=== PATIENT | female | born 1945 | race Caucasian/White ===

== ENCOUNTER → 2017-11-14 08:48 | Outpatient (CLI) | payer MEDICARE, MEDICAID, SELFPAY ==
[2017-11-14 09:34] LABS: Hemoglobin A1C% w Est Avg Glu 5.8 % (4.0-6.0)
[2017-11-14 09:51] LABS: Alanine Aminotransferase 56 IU/L (9-52); Albumin 4.2 g/dL (3.5-5.0); Albumin Globulin Ratio 1.5 (1.0-2.8); Alkaline Phosphatase 58 U/L (38-126); Aspartate Aminotransferase 52 IU/L (14-36); BUN Creatinine Ratio 18.6 (6-22); Blood Urea Nitrogen 13 mg/dL (7-17); Calcium 9.3 mg/dL (8.4-10.2); Carbon Dioxide 29 mmol/L (22-32); Chloride 105 mmol/L (98-107); Cholesterol 199 mg/dL (140-199); Estimated Glomerular Filt Rate > 60.0 mL/min (>60); Globulin 2.8 g/dL (1.7-4.1); Glucose 133 mg/dL (80-110); HDL Cholesterol 89 mg/dL (40-60); HEMOLYSIS < 15 (0-50); LDL Cholesterol Calculated 94 mg/dL (<100); Potassium 3.8 mmol/L (3.4-5.1); Sodium 142 mmol/L (137-145); Triglycerides 81 mg/dL (35-150)
[2017-11-14 10:18] LABS: Creatinine Urine Random 81.2 mg/dL; Protein (Total) Urine Random 9 mg/dL (0-12); Protein Creatinine Ratio Urine 0.11 GRAM/24H
[2017-11-14 10:51] LABS: Thyroid Stimulating Hormone 1.56 uIU/mL (0.47-4.68)
== END ==
PROVIDERS: PCP Physician Assistant; Visit Provider Physician Assistant
DX: E11.65 Type 2 diabetes mellitus with hyperglycemia (principal)
CPT/HCPCS: 36415; 80053; 80061; 82570; 83036; 84156; 84443

== ENCOUNTER → 2017-12-31 07:34 | Outpatient (CLI) | payer MEDICARE, MEDICAID, SELFPAY ==
--- NOTE | 2017-12-31 | DI.US.S_ITS ---
PROCEDURE: US CAROTID DOPPLER BI INDICATIONS: ATHEROSCLEROSIS TECHNIQUE: Color and pulse Doppler interrogation was performed of both carotid systems, with image documentation and velocity measurements. COMPARISON: None. FINDINGS: Stenosis calculations are based on SRU (Society of Radiologists in Ultrasound) criteria. Right side: Brachial blood pressure: 136/67 mm Hg. Common carotid artery peak systolic velocity: 91 cm/sec. Internal carotid artery peak systolic velocity: 254 cm/sec. Internal carotid artery end diastolic velocity: 65 cm/sec. External carotid artery peak systolic velocity: 107 cm/sec. ICA/CCA peak systolic ratio: 2.8 Petersen scale imaging description: Moderate scattered plaque. Percent internal carotid artery stenosis: 70% stenosis to near occlusion. Vertebral artery: Flow direction is antegrade. Left side: Brachial blood pressure: 147/72 mm Hg. Common carotid artery peak systolic velocity: 114 cm/sec. Internal carotid artery peak systolic velocity: 265 cm/sec. Internal carotid artery end diastolic velocity: 72 External carotid artery peak systolic velocity: 139 cm/sec. ICA/CCA peak systolic ratio: 2.3. Petersen scale imaging description: Severe scattered plaque. Percent internal carotid artery stenosis: 70% stenosis to near occlusion. Vertebral artery: Flow direction is antegrade. IMPRESSION: 70% stenosis to near occlusion of the internal carotid arteries bilaterally. Dictated by: Philippe Merida [facility] Interpreted: Francois Gill MD on 12/31/2017 at 9:22 Approved by: Francois Gill M.D. on 12/31/2017 at 10:44
== END ==
PROVIDERS: Family Provider Physician Assistant; PCP Physician Assistant; Visit Provider Physician Assistant
DX: I65.23 Occlusion and stenosis of bilateral carotid arteries (principal)
CPT/HCPCS: 93880

== ENCOUNTER 2018-05-26 00:44 | Emergency (ER) | payer MEDICARE, MEDICAID, SELFPAY ==
--- NOTE | 2018-05-26 01:03 | ED.GENADULT ---
HPI - General Adult General Chief complaint: Dizziness Stated complaint: rossy wilson had carotid surgery 1 mo ago Time Seen by Provider: 05/26/18 01:01 Source: patient Mode of arrival: ambulatory Limitations: no limitations History of Present Illness HPI narrative: 72-year-old female had a right-sided carotid endarterectomy performed approximately 1 month ago. She states that her symptoms went well. She stated that she was told that if she ever got lightheaded she need to immediately come to the emergency department for evaluation. Patient states she was at her normal state health until a couple hours prior to arrival here in the emergency department when she states she was lying in bed and she became dizzy. She states it was not a room spinning dizzy distal lightheaded. She does state that it gets worse when she turns her head to the right. No other associated symptoms. She stated that she walked to the bathroom and felt uneasy. Was not having any chest pain or shortness of breath or palpitations. Did not fall. Is only on aspirin no other anticoagulation. Related Data Previous Rx's Medication Instructions Recorded azithromycin [Zithromax] 250 mg PO QDAY 5 Days #0 tab 06/27/17 Allergies Allergy/AdvReac Type Severity Reaction Status Date / Time cephalexin [CEPHALEXIN] Allergy Unknown Unverified 08/27/17 13:09 codeine [CODEINE] Allergy Unknown Unverified 08/27/17 13:09 latex [LATEX] Allergy Unknown Unverified 08/27/17 13:09 Review of Systems Constitutional Denies fever(s) and Denies headache(s) Eyes Denies blurry vision, Denies change in vision and Denies diplopia ENT Ears, Nose, Mouth, and Throat: Denies vertigo, Reports dizziness, Denies headache(s), Denies tinnitus and Denies sore throat Cardiovascular Denies chest pain, Denies palpitations and Denies dyspnea Respiratory Denies dyspnea Gastrointestinal Gastrointestinal: Denies abdominal pain, Denies melena, Denies nausea and Denies vomiting Genitourinary Denies dysuria and Denies vaginal discharge Musculoskeletal Denies myalgias and Denies arthralgias Integumentary/Breasts Denies lesions and Denies rash Neurologic Denies vertigo, Reports dizziness and Denies headache(s) Endocrine Denies palpitations Hematologic/Lymphatic Denies easy bleeding and Denies easy bruising [facility] Medical History Diabetes (Acute) Surgical History H/O carotid endarterectomy (Acute) Social History Smoking Status: Former smoker Exam Initial Vital Signs Initial Vital Signs: Vital Signs Temperature 97.9 F 05/26/18 01:06 Pulse Rate 76 05/26/18 01:06 Respiratory Rate 18 05/26/18 01:06 Blood Pressure 195/64 H 05/26/18 01:06 Pulse Oximetry 100 05/26/18 01:06 Const General: cooperative, healthy appearing, comfortable, well developed, well groomed and No acute distress Orientation: alert, awake and oriented x3 HENMT Head: normal to inspection and normocephalic Neck Other: Well-healed surgical scar right side of the neck without erythema Resp Effort & Inspection: normal respiratory effort Auscultation: clear to auscultation bilaterally Cardio Rate: regular rate Rhythm: regular rhythm Pulses: radial pulses present GI Inspection: non-distended Palpation: soft and No tender Skin Lesions: no lesions Rashes: no rashes Other: Well-healed surgical scar right-sided neck Neuro General: alert, awake and oriented x3 Cranial Nerves: CN's II-XI intact bilaterally Cognition: normal cognition Speech: speech normal Motor: muscle tone normal throughout Sensory Exam: no sensory deficits noted Extrem General: normal to inspection and capillary refill normal Psych Appearance: grossly normal and well kempt Scores NIH Stroke Scale Level of Conciousness: Alert, keenly responsive Ask month/age: Answers both questions correctly. Open/close eyes, close hand: Performs both tasks correctly Best gaze horizontal: Normal Visual salgado: No visual loss Facial palsy: Normal symetrical movement Left arm drift: No drift for full 10 sec Right arm drift: No drift for full 10 sec Left leg drift: No drift for full 10 sec Right leg drift: No drift for full 10 sec Limb ataxia: Absent Sensory on face/arms/legs: Normal, no sensory loss Best language: No aphasia, normal Dysarthria: Normal Extinction or inattention: No abnormality Total NIH Stroke scale score: 0 Course Orders Ordered: ED Orders 05/26/18 01:02 EKG-12 Lead Stat Vital Signs - 8 hr 05/26/18 01:06 05/26/18 02:02 05/26/18 02:58 Temperature 97.9 F Pulse Rate 76 63 64 Respiratory Rate 18 16 12 Blood Pressure 195/64 H Blood Pressure [Left Arm] 151/54 H 147/57 H Pulse Oximetry 100 100 95 Medical Decision Making ECG Data Attestation: I personally reviewed and interpreted this ECG as follows: Prior ECG tracings: not available for review Interpretation: Sinus rhythm Ventricular rate is 68 Normal QRS Normal QTC No ST T wave changes MDM Narrative Medical decision making narrative: Patient with a normal neurologic exam. Is not having vertigo. EKG is unremarkable. Discussed the case with her operative surgeon who states that she has never told any for patients to immediately come to the emergency department there ever dizzy. I do not have the ability to do CT angios due to degradation of our CT scan however I feel like she does not warrant an emergent CT angio. Hold on further workup for now. We have the patient call her operative surgeon tomorrow. She was given return precautions. She expressed understanding and agreement plan. Low suspicion for CVA/TIA secondary to symptoms. Discharge Plan Departure Patient Disposition: Home Clinical Impression: Lightheadedness Instructions: DI for Dizziness-Nonvertigo Activity Restrictions/Additional Instructions: Continue all of your medications as directed. Call your vascular surgeon tomorrow to discuss her symptoms. Return to the emergency department for any new or worsening symptoms Prescriptions: No Action azithromycin [Zithromax] 250 MG tablet 250 mg PO QDAY 5 Days Qty: 0 RF: 0
[2018-05-26 01:06] VITALS: BP 195/64; PULSE 76; RESP 18; TEMP 36.6; O2SAT 100; BMI 24.5
[2018-05-26 02:02] VITALS: BP 151/54; PULSE 63; RESP 16; O2SAT 100
[2018-05-26 02:58] VITALS: BP 147/57; PULSE 64; RESP 12; O2SAT 95
[2018-05-26 03:44] VITALS: BP 118/50; PULSE 67; RESP 17; O2SAT 95
== END 2018-05-26 03:46 | disposition home or self-care (01) ==
PROVIDERS: Emergency Provider Emergency Medicine; Family Provider Physician Assistant; PCP Physician Assistant
DX: R42 Dizziness and giddiness (principal)
CPT/HCPCS: 93005; 99283

== ENCOUNTER → 2018-10-09 12:54 | Outpatient (CLI) | payer MEDICARE, MEDICAID, SELFPAY ==
--- NOTE | 2018-10-09 | DI.MG.S_ITS ---
BILATERAL DIGITAL SCREENING MAMMOGRAM 3D/2D WITH CAD: 10/09/2018 CLINICAL: Routine screening. Comparison is made to exams dated: 07/28/2017 mammogram, 06/07/2014 mammogram, and 03/13/2009 mammogram - [facility]. There are scattered fibroglandular elements in both breasts. Current study was also evaluated with a Computer Aided Detection (CAD) system. There is a mole marker on the left breast. No significant masses, calcifications, or other findings are seen in either breast. There has been no significant interval change. IMPRESSION: NEGATIVE There is no mammographic evidence of malignancy. A 1 year screening mammogram is recommended. This exam was interpreted at Station ID: [id number]. NOTE: For mammograms, a report in lay terms will be sent to the patient. Approximately 15% of breast malignancies will not be visualized mammographically. In the management of a palpable breast mass, a negative mammogram must not discourage biopsy of a clinically suspicious lesion. Electronically Signed By: Dell zhu/jennifer:10/09/2018 18:35:05 letter sent: Normal Exam ACR BI-RADS Category 1: Negative [id number]
== END ==
PROVIDERS: PCP Physician Assistant; Visit Provider Physician Assistant
DX: Z12.31 Encounter for screening mammogram for malignant neoplasm of breast (principal)
CPT/HCPCS: 77063; 77067

== ENCOUNTER 2018-12-24 19:53 | Emergency (ER) | payer MEDICARE, MEDICAID, SELFPAY ==
[2018-12-24 20:25] VITALS: BP 178/61; PULSE 80; RESP 18; TEMP 37.2; O2SAT 97
--- NOTE | 2018-12-24 20:30 | DI.RAD.S_ITS ---
PROCEDURE: XR ANKLE RT MIN 3V INDICATIONS: pain after fall TECHNIQUE: 3 views of the ankle were acquired. COMPARISON: [facility], , ANKLE 3 VIEWS RIGHT, 11/08/2014, 20:21. FINDINGS: Bones: No fractures or dislocations. Ankle mortise is normally aligned. No suspicious bony lesions. Soft tissues: No tibiotalar joint effusion. Achilles tendon appears normal. IMPRESSION: Right ankle without acute radiographic abnormalities. If there is persistent clinical concern for occult fracture given adequate mechanism of injury, consider repeat imaging in 10-14 days. Dictated by: Jesse Ledesma M.D. on 12/24/2018 at 21:14 Approved by: Jesse Ledesma M.D. on 12/24/2018 at 21:15
[2018-12-24 22:30] VITALS: BP 182/55
--- NOTE | 2018-12-24 22:41 | ED_ITS ---
HPI - Extremity Injury (Lower) General Chief Complaint: Extremity Injury, Lower Stated Complaint: right foot/ankle pain Time Seen by Provider: 12/24/18 22:35 Source: patient Mode of arrival: wheelchair Limitations: no limitations History of Present Illness HPI Narrative: 73-year-old female here for evaluation of a right ankle injury. Patient states that she went to stand up and twisted her right ankle. Unsure th e exact mechanism of how she twisted however has had pain on the outside of her ankle since then. She has had this happen in the past. Has been able to ambulate however with some difficulty. Has not tried anything for the symptoms prior to arrival Related Data Previous Rx's Medication Instructions Recorded azithromycin [Zithromax] 250 mg PO QDAY 5 Days #0 tab 06/27/17 Allergies Allergy/AdvReac Type Severity Reaction Status Date / Time cephalexin [CEPHALEXIN] Allergy Unknown Unverified 08/27/17 13:09 codeine [CODEINE] Allergy Unknown Unverified 08/27/17 13:09 latex [LATEX] Allergy Unknown Unverified 08/27/17 13:09 adhesive tape Allergy Hives Verified 12/24/18 20:31 Review of Systems Constitutional Denies fever(s) Cardiovascular Denies chest pain and Denies dyspnea Respiratory Denies dyspnea Musculoskeletal Reports abnormal gait, Reports arthralgias (Right ankle pain) and Reports tingling (Right foot) Integumentary/Breasts Denies new lesions and Denies rash Neurologic Reports abnormal gait and Reports tingling (Right foot) Hematologic/Lymphatic Denies easy bleeding and Denies easy bruising [facility] Medical History Diabetes (Acute) Surgical History (Updated 05/26/18 @ 03:05 by Brandon Florez DO) H/O carotid endarterectomy (Acute) Social History Smoking Status: Former smoker Social History Smoking Status: Former smoker Exam Initial Vital Signs Initial Vital Signs: Vital Signs Temperature 99.0 F 12/24/18 20:25 Pulse Rate 80 12/24/18 20:25 Respiratory Rate 18 12/24/18 20:25 Blood Pressure 178/61 H 12/24/18 20:25 Pulse Oximetry 97 12/24/18 20:25 Const General: cooperative, comfortable, well developed and well groomed Orientation: alert, awake and oriented x3 HENMT Head: normal to inspection and normocephalic Resp Effort & Inspection: normal respiratory effort Cardio Pulses: dorsalis pedis present on the right Skin Lesions: no lesions Rashes: no rashes Neuro General: alert and awake Cognition: normal cognition Speech: speech normal Extrem General: normal to inspection and capillary refill normal Other: Tenderness to palpation along the lateral aspect of the right ankle just distal to the lateral malleolus. No tenderness to palpation the base of the 5th metatarsal. Some tenderness palpation over the tibiotalar joint. No medial side tenderness. No Achilles tenderness. No proximal fibula tenderness. Psych Appearance: grossly normal and well kempt Procedures Orthopedic Splinting/Casting Injury #1: Side: right Lower Extremity Injury Location: ankle Lower Extremity Immobilizer: Vitor wrap Other Orthopedic Equipment: walker Post splinting neuro exam: intact Post splinting vascular exam: intact Placed by: Nursing Course Orders Ordered: ED Orders 12/24/18 20:30 XR ankle RT min 3V Stat Vital Signs - 8 hr 12/24/18 20:25 12/24/18 22:30 12/24/18 22:54 Temperature 99.0 F Pulse Rate 80 75 Respiratory Rate 18 Blood Pressure 178/61 H 165/47 H Blood Pressure [Right Arm] 182/55 H Pulse Oximetry 97 MDM - Extremity Injury (Lower) Imaging Data Ankle x-ray: Radiologist's impression: [address] [id number] XRay Report Signed Patient: Franco Wooten WMR#: [id number] : 7Acct:[id number] Age/Sex: 73 / FDate of Service: 12/24/18 Loc: ED Accession Number: [id number] Procedure: XR ankle RT min 3V Ordering Provider: Brandon Florez D.O. PROCEDURE: XR ANKLE RT MIN 3V INDICATIONS: pain after fall TECHNIQUE: 3 views of the ankle were acquired. COMPARISON: [facility], , ANKLE 3 VIEWS RIGHT, 11/08/2014, 20:21. FINDINGS: Bones: No fractures or dislocations. Ankle mortise is normally aligned. No suspicious bony lesions. Soft tissues: No tibiotalar joint effusion. Achilles tendon appears normal. IMPRESSION: Right ankle without acute radiographic abnormalities. If there is persistent clinical concern for occult fracture given adequate mechanism of injury, consider repeat imaging in 10-14 days. Dictated by: Jesse Ledesma M.D. on 12/24/2018 at 21:14 Approved by: Jesse Ledesma M.D. on 12/24/2018 at 21:15 [facility] Narrative Medical decision making narrative: Neurovascular intact, no fractures on the x- ray, Vitor bandage placed for comfort. Patient has a walker at home that she will use if needed. Discussed the use of anti-inflammatories and ice and elevation. She is given return precautions and follow-up instructions. She expressed understanding and agreement with plan. Discharge Plan Departure Patient Disposition: Home Clinical Impression: Right ankle sprain Qualifiers: Encounter type: initial encounter Involved ligament of ankle: unspecified ligament Qualified Code(s): S93.401A - Sprain of unspecified ligament of right ankle, initial encounter Discharge Date/Time: 12/24/18 22:55 Interventions: ED Discharge Assessment Last Done: 12/24/18 22:54 Instructions: DI for Ankle Sprain, How To Perform RICE (Rest, Ice, Compress, Elevate), How to Apply an Elastic Wrap on Ankle Activity Restrictions/Additional Instructions: There is no fractures noted on the x-rays. You can walk on your ankle. Use your walker at home like we discussed. Contact your primary provider for a follow-up. Return to the emergency department for any new or worsening symptoms Prescriptions: No Action azithromycin [Zithromax] 250 MG tablet 250 mg PO QDAY 5 Days Qty: 0 RF: 0 Referrals: Rosa Roberts PA-C [Primary Care Provider] -
[2018-12-24 22:54] VITALS: BP 165/47; PULSE 75
== END 2018-12-24 22:55 | disposition home or self-care (01) ==
PROVIDERS: Emergency Provider Emergency Medicine; PCP Physician Assistant
DX: S93.401A Sprain of unspecified ligament of right ankle, initial encounter (principal); X50.1XXA Overexertion from prolonged static or awkward postures, initial encounter
CPT/HCPCS: 73610; 99282; 99283

== ENCOUNTER → 2019-02-26 09:09 | Outpatient (CLI) | payer MEDICARE, MEDICAID, SELFPAY ==
[2019-02-26 10:31] LABS: Alanine Aminotransferase 40 IU/L (9-52); Albumin 4.4 g/dL (3.5-5.0); Albumin Globulin Ratio 1.7 (1.0-2.8); Alkaline Phosphatase 67 U/L (38-126); Aspartate Aminotransferase 32 IU/L (14-36); Blood Urea Nitrogen 12 mg/dL (7-17); Calcium 9.3 mg/dL (8.4-10.2); Carbon Dioxide 28 mmol/L (22-32); Chloride 104 mmol/L (98-107); Cholesterol 148 mg/dL (140-199); Estimated Glomerular Filt Rate > 60.0 mL/min (>60); Globulin 2.6 g/dL (1.7-4.1); Glucose 135 mg/dL (80-110); HDL Cholesterol 77 mg/dL (40-60); HEMOLYSIS < 15 (0-50); LDL Cholesterol Calculated 54 mg/dL (<100); Potassium 4.1 mmol/L (3.4-5.1); Sodium 141 mmol/L (137-145); Triglycerides 84 mg/dL (35-150)
[2019-02-26 10:42] LABS: Hemoglobin A1C% w Est Avg Glu 5.7 % (4.0-6.0)
[2019-02-26 11:30] LABS: Thyroid Stimulating Hormone 1.34 uIU/mL (0.47-4.68)
[2019-02-26 16:30] LABS: Creatinine Urine Random 68.5 mg/dL
[2019-02-26 16:35] LABS: Microalbumi Creatinin Ratio Ur 8.7 ug/mg CR (<30); Microalbumin Urine Random < 0.6 mg/dL (0-1.6)
== END ==
PROVIDERS: PCP Physician Assistant; Visit Provider Physician Assistant
DX: F41.9 Anxiety disorder, unspecified (principal); E11.65 Type 2 diabetes mellitus with hyperglycemia
CPT/HCPCS: 36415; 80053; 80061; 82043; 82570; 83036; 84443

== ENCOUNTER 2019-11-13 18:19 | Emergency (ER) | payer MEDICARE, MEDICAID, SELFPAY ==
[2019-11-13 18:24] VITALS: BP 214/91; PULSE 94; RESP 20; TEMP 36.3; O2SAT 99; BMI 25.8
--- NOTE | 2019-11-13 18:37 | ED.LOWEXIN ---
HPI - Extremity Injury (Lower) General Chief Complaint: Extremity Injury, Lower Stated Complaint: left ankle swelling, diabetic Time Seen by Provider: 11/13/19 18:20 Source: patient Mode of arrival: Family Vehicle Limitations: no limitations History of Present Illness HPI Narrative: 74-year-old female nonsmoker with history of diabetes presents with a chief complaint of some swelling of her left ankle. She denies any significant pain nor history of the same. She denies any known injury but, she states that she uses an exercise bike multiple times per week and may have over done it. Additionally she states that she feels a bit fuzzy and not right, stating that her blood pressure was over 200 and she does not have a history of elevated blood pressure. She denies any blurred vision or trouble speech. She denies any chest pain or shortness of breath. She denies any focal neurologic findings. MD complaint: ankle injury Relieving factors: nothing Exacerbating factors: nothing Associated symptoms: swelling Other symptoms: other Related Data Previous Rx's Medication Instructions Recorded azithromycin [Zithromax] 250 mg PO QDAY 5 Days #0 tab 06/27/17 lisinopril 10 mg PO DAILY #30 tab 11/13/19 Allergies Allergy/AdvReac Type Severity Reaction Status Date / Time cephalexin [CEPHALEXIN] Allergy Unknown Unverified 08/27/17 13:09 codeine [CODEINE] Allergy Unknown Unverified 08/27/17 13:09 latex [LATEX] Allergy Unknown Unverified 08/27/17 13:09 adhesive tape Allergy Hives Verified 12/24/18 20:31 Review of Systems Constitutional Constitutional: Denies chills, Denies fatigue, Denies fever(s), Denies frequent falls, Denies lethargy and Denies weakness Comments: fuzzy, not right Eyes Eyes: Denies change in vision, Denies eye discharge, Denies irritation and Denies loss of vision ENT Ears, Nose, Mouth, and Throat: Denies change in voice, Denies dizziness, Denies neck pain, Denies sore throat and Denies throat swelling Cardiovascular Cardiovascular: Denies chest pain, Denies irregular heart rhythm, Denies lightheadedness, Denies palpitations, Denies dyspnea, Denies dyspnea on exertion and Denies orthopnea Respiratory Respiratory: Denies cough, Denies dyspnea, Denies dyspnea on exertion and Denies wheezing Gastrointestinal Gastrointestinal: Denies abdominal pain, Denies change in bowel habits, Denies diarrhea, Denies nausea and Denies vomiting Musculoskeletal Musculoskeletal: Reports joint swelling, Denies neck pain and Denies numbness Integumentary/Breasts Skin/Breast: Denies pruritus, Denies erythema, Denies rash and Denies wounds Neurologic Neurologic: Denies behavioral changes, Denies confusion, Denies dizziness, Denies frequent falls, Denies loss of vision, Denies numbness and Denies weakness Psychiatric Psychiatric: Denies anxiety, Denies behavioral changes, Denies confusion, Denies depression, Denies homicidal ideation and Denies suicidal ideation Endocrine Endocrine: Denies fatigue, Denies flushing and Denies palpitations Hematologic/Lymphatic Hematologic/Lymphatic: Denies easy bruising Allergic/Immunologic Allergic/Immunologic: Denies urticaria, Denies throat swelling and Denies wheezing Patient History Medical History (Updated 11/13/19 @ 21:10 by Eliseo Vigil DO) Diabetes (Acute) Surgical History (Updated 05/26/18 @ 03:05 by Brandon Florez DO) H/O carotid endarterectomy (Acute) Social History Smoking Status: Former smoker Smoking Status: Former smoker alcohol intake frequency: other Substance Use Type: does not use Exam Narrative Exam Narrative: GENERAL: [74] year old patient appears stated age. Well-nourished, well-developed patient, in mild distress. Anxious HEAD: Atraumatic. Normocephalic. EYES: Pupils equal round and reactive. Extraocular motions intact. No scleral icterus. No injection or drainage. ENT: Nose without bleeding, purulent drainage. Throat without erythema, tonsillar hypertrophy or exudate. Airway patent. NECK: Trachea midline. Non tender CARDIOVASCULAR: Regular rate and rhythm without murmurs, gallops, or rubs. RESPIRATORY: Clear to auscultation. Breath sounds equal bilaterally. No wheezes, rales, or rhonchi. GASTROINTESTINAL: Abdomen soft, non-tender, nondistended. EXTREMITIES: Mild left ankle swelling laterally. Mild tenderness in distribution of ATF BACK: Nontender without deformity or crepitance. No flank tenderness. NEURO: AOx3. SKIN: No rash or erythema of visible areas Initial Vital Signs Initial Vital Signs: Vital Signs Temperature 97.4 F L 11/13/19 18:24 Pulse Rate 94 H 11/13/19 18:24 Respiratory Rate 20 11/13/19 18:24 Blood Pressure 214/91 H 11/13/19 18:24 Pulse Oximetry 99 11/13/19 18:24 Course Course Course Narrative: Patient's complaint was of left ankle swelling, she did not initially know but it was tender until I pressed on it. She states that she was concerned because she is diabetic. There is no redness, warmth or sign of infection. Labs were drawn because she had elevated blood pressure and states she felt ?funny? period without intervention her blood pressure dropped into the 170s and her symptoms resolved. Orders Ordered: ED Orders 11/13/19 18:37 XR ankle LT min 3V Stat 11/13/19 19:18 Complete Blood Count AUTO DIFF Stat Comprehensive Metabolic Panel Stat NT-proBNP (BNP-Adult 18+) Stat Prothrombin Time INR Stat Troponin & CK Cardiac Panel Stat 11/13/19 19:21 EKG-12 Lead Stat Vital Signs Vital signs: Vital Signs - 8 hr 11/13/19 18:56 11/13/19 20:36 11/13/19 21:14 Pulse Rate 85 65 69 Respiratory Rate 19 12 12 Blood Pressure [Left Arm] 226/94 H 188/86 H 172/74 H Pulse Oximetry 97 95 96 MDM - Extremity Injury (Lower) Lab Data Result diagrams: 11/13/19 19:18 11/13/19 19:18 Labs: Lab Results 11/13/19 11/13/19 11/13/19 Range/Units 19:18 19:18 19:18 WBC 4.5 (4.5-11.0) X10^3/uL RBC 3.72 L (4.0-5.2) X10^6/uL Hgb 12.2 (12.0-16.0) g/dL Hct 35.6 L (36-46) % MCV 95.7 (80-100) fL MCH 32.9 (26-34) PG MCHC 34.4 (30-36) % RDW 13.0 (11.6-14.8) % Plt Count 115 L (150-400) X10^3/uL Neut % (Auto) 48.3 L (50-75) % Lymph % (Auto) 40.3 H (25-40) % Morrill % (Auto) 9.5 (3-14) % Eos % (Auto) 1.3 L (2-4) % Baso % (Auto) 0.6 (0-2) % Neut # (Auto) 2200 (0217-1086) /uL Lymph # (Auto) 1800 (5314-2027) /uL Morrill # (Auto) 400 (0-900) /uL Eos # (Auto) 100 (0-450) /uL Baso # (Auto) 0 (0-100) /uL PT 11.5 (10.1-12.7) SECONDS INR 1.0 (0.9-1.3) Sodium 137 (137-145) mmol/L Potassium 3.8 (3.4-5.1) mmol/L Chloride 102 (98-107) mmol/L Carbon Dioxide 28 (22-32) mmol/L BUN 12 (7-17) mg/dL Creatinine 0.58 (0.52-1.04) mg/dL Estimated GFR > 60.0 (>60) mL/min BUN/Creatinine Ratio 20.7 (6-22) Glucose 147 H (80-110) mg/dL Calcium 9.6 (8.4-10.2) mg/dL Total Bilirubin 1.8 H (0.2-1.3) mg/dL AST 29 (14-36) IU/L ALT 28 (<35) IU/L Alkaline Phosphatase 78 (38-126) U/L Total Creatine Kinase 43 (30-135) U/L CK-MB (CK-2) TNP CK-MB (CK-2) Rel Index TNP Troponin I < 0.012 (0.01-0.034) ng/mL NT-Pro-B Natriuret Pep 214 H (<125) pg/mL Total Protein 7.0 (6.3-8.2) g/dL Albumin 4.4 (3.5-5.0) g/dL Globulin 2.6 (1.7-4.1) g/dL Albumin/Globulin Ratio 1.7 (1.0-2.8) Imaging Data Extremity x-ray #1: Radiologist's Impression: Franco Wooten W 74 F [address] [address] XRay Report Signed Patient: Franco Wooten WMR#: [id number] : 7Acct:[id number] Age/Sex: 74 / FDate of Service: 11/13/19 Loc: ED Accession Number: [id number] Procedure: XR ankle LT min 3V Ordering Provider: Eliseo Vigil D.O. PROCEDURE: XR ANKLE LT MIN 3V INDICATIONS: pain, swelling, no obvious injury TECHNIQUE: 3 views of the ankle were acquired. COMPARISON: [facility], CR, XR ANKLE RT MIN 3V, 12/24/2018, 20:30. FINDINGS: Bones: No fractures or dislocations. Ankle mortise is normally aligned. No suspicious bony lesions. Soft tissues: No tibiotalar joint effusion. Achilles tendon appears normal. IMPRESSION: No acute radiographic findings. If pain persists, followup imaging in 5-7 days is recommended to exclude occult fracture. Dictated by: Ashley Kelly M.D. on 11/13/2019 at 19:18 Approved by: Ashley Kelly M.D. on 11/13/2019 at 19:25 MDM Narrative Medical decision making narrative: CHF considered but thought unlikely given unilateral symptoms. Fracture considered but thought unlikely given lack of findings on x-ray. DVT considered as well as infection but thought less likely given lack of redness or warmth. Given tenderness and distribution of anterior talofibular ligament it seems most likely that she has a slight sprain. Labs ordered given her elevated blood pressure and comments that she felt unwell, these labs are very reassuring and blood pressure normalized and symptoms resolved. She has been given return precautions and understands importance of close follow-up Discharge Plan Departure Patient Disposition: Home Clinical Impression: Ankle swelling Qualifiers: Laterality: left Qualified Code(s): M25.472 - Effusion, left ankle HTN (hypertension) Qualifiers: Hypertension type: essential hypertension Qualified Code(s): I10 - Essential (primary) hypertension Discharge Date/Time: 11/13/19 21:34 Instructions: Essential Hypertension Activity Restrictions/Additional Instructions: *You have been diagnosed with [ blood pressure ] *What to do: *Take medications as directed *Follow up with your primary care provider in 2-3 days, call for an appointment. Let them know you were seen in the Emergency Department and that we ask that you be seen in follow up *Return to ER if you should have any new, worsening or concerning symptoms, such as [ ] Prescriptions: New lisinopril 10 mg tablet 10 mg PO DAILY Qty: 30 RF: 0 No Action azithromycin [Zithromax] 250 MG tablet 250 mg PO QDAY 5 Days Qty: 0 RF: 0 Referrals: Rosa Roberts PA-C [Primary Care Provider] -
[2019-11-13 18:56] VITALS: BP 226/94; PULSE 85; RESP 19; O2SAT 97
[2019-11-13 19:33] LABS: Add Manual Diff / Slide Review NO; Basophils Absolute Auto 0 /uL (0-100); Basophils Percent Auto 0.6 % (0-2); Eosinophils Absolute Auto 100 /uL (0-450); Eosinophils Percent Auto 1.3 % (2-4); Hematocrit 35.6 % (36-46); Hemoglobin 12.2 g/dL (12.0-16.0); Lymphocytes Absolute Auto 1800 /uL (1100-4500); Lymphocytes Percent Auto 40.3 % (25-40); Mean Corpuscular HGB Conc 34.4 % (30-36); Mean Corpuscular Hemoglobin 32.9 PG (26-34); Mean Corpuscular Volume 95.7 fL (80-100); Monocytes Absolute Auto 400 /uL (0-900); Monocytes Percent Auto 9.5 % (3-14); Neutrophils Absolute Auto 2200 /uL (1500-7000); Neutrophils Percent Auto 48.3 % (50-75); Platelet Count 115 X10^3/uL (150-400); Red Blood Cell Count 3.72 X10^6/uL (4.0-5.2); White Blood Cell Count 4.5 X10^3/uL (4.5-11.0)
[2019-11-13 19:48] LABS: Prothrombin Time 11.5 SECONDS (10.1-12.7)
[2019-11-13 19:49] LABS: Alanine Aminotransferase 28 IU/L (<35); Albumin 4.4 g/dL (3.5-5.0); Albumin Globulin Ratio 1.7 (1.0-2.8); Alkaline Phosphatase 78 U/L (38-126); Aspartate Aminotransferase 29 IU/L (14-36); BUN Creatinine Ratio 20.7 (6-22); Bilirubin Total 1.8 mg/dL (0.2-1.3); Blood Urea Nitrogen 12 mg/dL (7-17); Calcium 9.6 mg/dL (8.4-10.2); Carbon Dioxide 28 mmol/L (22-32); Chloride 102 mmol/L (98-107); Creatine Kinase 43 U/L (30-135); Estimated Glomerular Filt Rate > 60.0 mL/min (>60); Globulin 2.6 g/dL (1.7-4.1); Glucose 147 mg/dL (80-110); HEMOLYSIS < 15 (0-50); Potassium 3.8 mmol/L (3.4-5.1); Sodium 137 mmol/L (137-145)
[2019-11-13 20:01] LABS: NT-proBNP (BNP-Adult 18+) 214 pg/mL (<125); Troponin I < 0.012 ng/mL (0.01-0.034)
[2019-11-13 20:36] VITALS: BP 188/86; PULSE 65; RESP 12; O2SAT 95
[2019-11-13 21:14] VITALS: BP 172/74; PULSE 69; RESP 12; O2SAT 96
== END 2019-11-13 21:34 | disposition home or self-care (01) ==
PROVIDERS: Emergency Provider Emergency Medicine; PCP Physician Assistant
DX: M25.472 Effusion, left ankle (principal); I10 Essential (primary) hypertension; R07.9 Chest pain, unspecified
CPT/HCPCS: 36415; 73610; 80053; 82550; 83880; 84484; 85025; 85610; 93005; 99284

== ENCOUNTER → 2021-03-24 12:47 | Outpatient (CLI) | payer MEDICARE, MEDICAID, SELFPAY ==
--- NOTE | 2021-03-24 | DI.MG.S_ITS ---
BILATERAL DIGITAL SCREENING MAMMOGRAM 3D/2D WITH CAD: 03/24/2021 CLINICAL: Routine screening. Comparison is made to exams dated: 10/09/2018 mammogram, 07/28/2017 mammogram, and 06/07/2014 mammogram - [facility]. There are scattered fibroglandular elements in both breasts. Current study was also evaluated with a Computer Aided Detection (CAD) system. No significant masses, calcifications, or other findings are seen in either breast. There has been no significant interval change. IMPRESSION: NEGATIVE There is no mammographic evidence of malignancy. A 1 year screening mammogram is recommended. This exam was interpreted at Station ID: [id number]. NOTE: For mammograms, a report in lay terms will be sent to the patient. Approximately 15% of breast malignancies will not be visualized mammographically. In the management of a palpable breast mass, a negative mammogram must not discourage biopsy of a clinically suspicious lesion. Electronically Signed By: Modesto vásquez/jennifer:03/26/2021 09:13:00 letter sent: Normal Exam ACR BI-RADS Category 1: Negative 3341F
== END ==
PROVIDERS: PCP Physician Assistant; Referring Provider Physician Assistant; Visit Provider Physician Assistant
DX: Z12.31 Encounter for screening mammogram for malignant neoplasm of breast (principal)
CPT/HCPCS: 77063; 77067

== ENCOUNTER 2022-03-31 13:32 | Emergency (ER) | payer MEDICARE, MEDICAID, SELFPAY ==
[2022-03-31 13:52] VITALS: BP 164/65; PULSE 86; RESP 16; TEMP 36.7; O2SAT 96; BMI 24.4
--- NOTE | 2022-03-31 13:55 | DI.RAD.S_ITS ---
PROCEDURE: XR CHEST 2V INDICATIONS: productive cough TECHNIQUE: 2 views of the chest were acquired. COMPARISON: [facility], CHEST 2 VIEW, 06/27/2017, 14:36. [facility], CHEST 2 VIEW, 04/17/2015, 13:42. FINDINGS: Surgical changes and devices: None. Lungs and pleura: Probable scarring atelectasis. Mild opacity at the right lung base. No dense consolidation. No pleural effusions. Mediastinum: Mediastinal contours are normal. Heart size is normal. Bones and chest wall: No suspicious bony abnormalities. Soft tissues appear unremarkable. IMPRESSION: Mild opacity at the right lung base could represent early airspace disease. There is likely superimposed atelectasis/scarring. Consider future imaging surveillance to assess for resolution. Dictated by: Moses Smith M.D. on 03/31/2022 at 15:11 Approved by: Moses Smith M.D. on 03/31/2022 at 15:13
[2022-03-31 14:48] LABS: Influenza A - CEPHEID Flu A NEGATIVE (NEGATIVE); Influenza B - CEPHEID Flu B NEGATIVE (NEGATIVE); Respiratory Syncytial Virus Negative (Negative)
[2022-03-31 14:50] LABS: COVID-19 CEPHEID 4-PLEX PCR Negative (Negative)
--- NOTE | 2022-03-31 15:12 | ED.URI ---
HPI - URI/Sore Throat <Monica Gonzalez PA-C - Last Filed: 03/31/22 18:12> General Chief Complaint: Upper Respiratory Symptoms Stated Complaint: cold for t-7 exhausted Time Seen by Provider: 03/31/22 14:40 Source: patient Mode of arrival: Ambulatory History of Present Illness HPI Narrative: patient is very pleasant 76 years old female, ex-smoker, quit 20 years ago, pt prior to quitting smoked for 20 years 1 PPD , Has been experiencing cold symptoms for about a week. Her nasal congestion cleared however persistent cough, productive with yellow-green sputum continued. Patient feels tired from coughing, admits her ribs are hurting, admits to poor sleep. She denies any fever chills, denies nasal drainage at this point. She denies shortness of breath or dyspnea on exertion. Due to her recent illness her appetite decreased. Admits she perhaps lost some weight. Related Data Previous Rx's Medication Instructions Recorded azithromycin 250 mg tablet 250 mg PO QDAY 5 days #0 tabs 06/27/17 (Zithromax) lisinopril 10 mg tablet 10 mg PO DAILY #30 tabs 11/13/19 azithromycin 250 mg tablet See Rx Instructions PO .COMPLEX #6 03/31/22 (Zithromax) tabs benzonatate 200 mg capsule 200 mg PO BID PRN cough #14 caps 03/31/22 guaifenesin 600 mg tablet, 600 mg PO Q12H PRN cough #20 tabs 03/31/22 extended release 12 hr Allergies Allergy/AdvReac Type Severity Reaction Status Date / Time cephalexin [CEPHALEXIN] Allergy Unknown Unverified 08/27/17 13:09 codeine [CODEINE] Allergy Unknown Unverified 08/27/17 13:09 latex [LATEX] Allergy Unknown Unverified 08/27/17 13:09 adhesive tape Allergy Hives Verified 12/24/18 20:31 Review of Systems <Monica Gonzalez PA-C - Last Filed: 03/31/22 18:12> Review of Systems Narrative: as per HPI Patient History <Monica Gonzalez PA-C - Last Filed: 03/31/22 18:12> Medical History Diabetes Surgical History H/O carotid endarterectomy Social History Smoking Status: Former smoker Smoking Status: Former smoker alcohol intake frequency: other Substance Use Type: does not use Exam <Monica Gonzalez PA-C - Last Filed: 03/31/22 18:12> Narrative Exam Narrative: GENERAL: 76 year old female appears stated age. Well-developed patient, in no acute distress. she however cough persistently. HEAD: Atraumatic. Normocephalic. EYES: Pupils equal round and reactive. Extraocular motions intact. No scleral icterus. No injection or drainage. ENT: Nasal passages are dry without bleeding, purulent drainage. Throat with patchy erythema, there is notonsillar hypertrophy or exudate. Airway patent. NECK: Trachea midline. Non tender CARDIOVASCULAR: Regular rate and rhythm without murmurs, gallops, or rubs. RESPIRATORY: scattered rhonchi at the right lower lobe not cleared with cough the rest of salgado are cClear to auscultation. . GASTROINTESTINAL: Abdomen soft, non-tender, nondistended. EXTREMITIES: No edema or joint tenderness. BACK: Nontender without deformity or crepitance. No flank tenderness. NEURO: AOx3. SKIN: No rash or erythema of visible areas Initial Vital Signs Initial Vital Signs: Vital Signs Temperature 98.0 F 03/31/22 13:52 Pulse Rate 86 03/31/22 13:52 Respiratory Rate 16 03/31/22 13:52 Blood Pressure 164/65 H 03/31/22 13:52 Pulse Oximetry 96 03/31/22 13:52 Oxygen Delivery Method 03/31/22 13:52 <Rachel Baumann MD - Last Filed: 03/31/22 18:49> Initial Vital Signs Initial Vital Signs: Vital Signs Temperature 98.0 F 03/31/22 13:52 Pulse Rate 86 03/31/22 13:52 Respiratory Rate 16 03/31/22 13:52 Blood Pressure 164/65 H 03/31/22 13:52 Pulse Oximetry 96 03/31/22 13:52 Oxygen Delivery Method 03/31/22 13:52 Course <Monica Gonzalez PA-C - Last Filed: 03/31/22 18:12> Orders Ordered: ED Orders 03/31/22 13:55 XR chest 2V Stat Covid-19 + FLU A/B + RSV - PCR Stat Vital Signs Vital signs: Vital Signs - 8 hr 03/31/22 13:52 03/31/22 15:57 03/31/22 15:58 Temperature 98.0 F Pulse Rate 86 85 83 Respiratory Rate 16 Blood Pressure 164/65 H Pulse Oximetry 96 95 95 Oxygen Delivery Method Room Air 03/31/22 15:58 03/31/22 16:00 03/31/22 16:00 Temperature Pulse Rate 80 Respiratory Rate Blood Pressure 174/72 H 172/73 H Pulse Oximetry 96 Oxygen Delivery Method 03/31/22 17:00 Temperature Pulse Rate 84 Respiratory Rate 17 Blood Pressure 170/68 H Pulse Oximetry 95 Oxygen Delivery Method Room Air <Rachel Baumann MD - Last Filed: 03/31/22 18:49> Orders Ordered: ED Orders 03/31/22 13:55 XR chest 2V Stat Covid-19 + FLU A/B + RSV - PCR Stat Vital Signs Vital signs: Vital Signs - 8 hr 03/31/22 13:52 03/31/22 15:57 03/31/22 15:58 Temperature 98.0 F Pulse Rate 86 85 83 Respiratory Rate 16 Blood Pressure 164/65 H Pulse Oximetry 96 95 95 Oxygen Delivery Method Room Air 03/31/22 15:58 03/31/22 16:00 03/31/22 16:00 Temperature Pulse Rate 80 Respiratory Rate Blood Pressure 174/72 H 172/73 H Pulse Oximetry 96 Oxygen Delivery Method 03/31/22 17:00 Temperature Pulse Rate 84 Respiratory Rate 17 Blood Pressure 170/68 H Pulse Oximetry 95 Oxygen Delivery Method Room Air MDM - URI/Sore Throat <Monica Gonzalez PA-C - Last Filed: 03/31/22 18:12> Lab Data Labs: Lab Results 03/31/22 Range/Units 13:55 SARS-CoV-2 (PCR) Negative (Negative) Influenza A (RT-PCR) Flu a negative (NEGATIVE) Influenza B (RT-PCR) Flu b negative (NEGATIVE) RSV (PCR) Negative (Negative) Imaging Data Chest x-ray: Radiologist's Impression: Bones and chest wall:? No suspicious bony abnormalities.? Soft tissues appear unremarkable.? ? IMPRESSION:? Mild opacity at the right lung base could represent early airspace disease.? There is likely superimposed atelectasis/scarring.? Consider future imaging surveillance to assess for resolution. MDM Narrative Medical decision making narrative: patient exam, imaging consistent was acute bronchitis. discussed with patient diagnosis and treatment. She will start on a Zithromax antibiotic, and antitussives, consisting of Tessalon Perles, guaifenesin - instructed to take medications as directed. patient instructed to call their doctor's office in the morning to schedule an appointment in the next 1-2 days. <Rachel Baumann MD - Last Filed: 03/31/22 18:49> Lab Data Labs: Lab Results 03/31/22 Range/Units 13:55 SARS-CoV-2 (PCR) Negative (Negative) Influenza A (RT-PCR) Flu a negative (NEGATIVE) Influenza B (RT-PCR) Flu b negative (NEGATIVE) RSV (PCR) Negative (Negative) Critical Care Time <Monica Gonzalez PA-C - Last Filed: 03/31/22 18:12> Critical Care Time Total Critical Care Time: 30 Discharge Plan Departure Patient Disposition: Home Clinical Impression: Acute bronchitis Instructions: Acute Bronchitis Activity Restrictions/Additional Instructions: mrs Wooten is diagnosed with acute bronchitis. Dignosis and treatment discussed with patient She had her questions answered to their apparent satisfaction and are instructed to return to the emergency department for any worsening, persistent, or worrisome problems, such as fever, worsening cough SOB . She was instructed to take medications as directed. She was instructed to call their doctor's office in the morning to schedule an appointment in the next 1-2 days. Prescriptions: New azithromycin [Zithromax] 250 mg tablet See Rx Instructions .ROUTE .COMPLEX Qty: 6 0RF Rx Instructions: For 250 mg dose pack: take 500 mg today (day 1), then 250 mg for 4 days (days 2-5) benzonatate 200 mg capsule 200 mg PO BID PRN (Reason: cough) Qty: 14 0RF guaifenesin 600 mg tablet extended release 12hr 600 mg PO Q12H PRN (Reason: cough) Qty: 20 0RF No Action azithromycin [Zithromax] 250 MG tablet 250 mg PO QDAY 5 Days Qty: 0 0RF lisinopril 10 mg tablet 10 mg PO DAILY Qty: 30 0RF Referrals: Rosa Roberts PA-C [Primary Care Provider] - Visit Report Forms: Patient Portal/API <Rachel Baumann MD - Last Filed: 03/31/22 18:49> Cosign ED Attending Cosayaanature Attestation: I was immediately available in the department for consultation throughout this patient's visit. I agree with documentation as above. Rachel Baumann MD
[2022-03-31 15:57] VITALS: PULSE 85; O2SAT 95
[2022-03-31 15:58] VITALS: BP 174/72; PULSE 83; O2SAT 95
[2022-03-31 16:00] VITALS: BP 172/73; PULSE 80; O2SAT 96
[2022-03-31 17:00] VITALS: BP 170/68; PULSE 84; RESP 17; O2SAT 95
== END 2022-03-31 17:01 | disposition home or self-care (01) ==
PROVIDERS: Emergency Medicine; Emergency Provider Physician Assistant Medical; PCP Physician Assistant
DX: J20.9 Acute bronchitis, unspecified (principal); Z20.822 Contact with and (suspected) exposure to COVID-19
CPT/HCPCS: 0241U; 71046; 99283; 99284

== ENCOUNTER → 2022-04-24 12:49 | Outpatient (CLI) | payer MEDICARE, MEDICAID, SELFPAY ==
--- NOTE | 2022-04-24 | DI.MG.S_ITS ---
BILATERAL DIGITAL SCREENING MAMMOGRAM 3D/2D WITH CAD: 04/24/2022 CLINICAL: Routine screening. Comparison is made to exams dated: 03/24/2021 mammogram, 10/09/2018 mammogram, and 07/28/2017 mammogram - [facility]. There are scattered areas of fibroglandular density in both breasts (category b / 25%-50% glandular tissue). Current study was also evaluated with a Computer Aided Detection (CAD) system. No significant masses, calcifications, or other findings are seen in either breast. There has been no significant interval change. IMPRESSION: NEGATIVE There is no mammographic evidence of malignancy. A 1 year screening mammogram is recommended. Based on the Tyrer Cuzick model (a risk assessment model) the patient's lifetime risk is 1.7% and her 10 year risk is 1.7%. According to the ACR, ACS, and NCCN guidelines, an annual breast MRI exam along with mammogram is recommended if the patient's lifetime risk is 20% or greater. This exam was interpreted at Station ID: [id number]. NOTE: For mammograms, a report in lay terms will be sent to the patient. Approximately 15% of breast malignancies will not be visualized mammographically. In the management of a palpable breast mass, a negative mammogram must not discourage biopsy of a clinically suspicious lesion. Electronically Signed By: Owen jeffrey/jennifer:04/24/2022 16:11:26 letter sent: Normal Exam ACR BI-RADS Category 1: Negative 3341F
== END ==
PROVIDERS: PCP Physician Assistant; Referring Provider Physician Assistant; Visit Provider Physician Assistant
DX: Z12.31 Encounter for screening mammogram for malignant neoplasm of breast (principal)
CPT/HCPCS: 77063; 77067

== ENCOUNTER → 2023-05-09 12:58 | Outpatient (CLI) | payer MEDICARE, MEDICAID, SELFPAY ==
--- NOTE | 2023-05-09 | DI.MG.S_ITS ---
BILATERAL DIGITAL SCREENING MAMMOGRAM 3D/2D WITH CAD: 05/09/2023 CLINICAL: Routine screening. Comparison is made to exams dated: 04/24/2022 mammogram, 03/24/2021 mammogram, and 10/09/2018 mammogram - [facility]. There are scattered areas of fibroglandular density in both breasts (category b / 25%-50% glandular tissue). Current study was also evaluated with a Computer Aided Detection (CAD) system. There are benign vascular calcifications in both breasts. There is a mole marker on the left breast. No significant masses, calcifications, or other findings are seen in either breast. There has been no significant interval change. IMPRESSION: BENIGN There is no mammographic evidence of malignancy. A 1 year screening mammogram is recommended. Based on the Tyrer Cuzick model (a risk assessment model) the patient's lifetime risk is 1.5% and her 10 year risk is 0.0%. According to the ACR, ACS, and NCCN guidelines, an annual breast MRI exam along with mammogram is recommended if the patient's lifetime risk is 20% or greater. This exam was interpreted at Station ID: [id number]. NOTE: For mammograms, a report in lay terms will be sent to the patient. Approximately 15% of breast malignancies will not be visualized mammographically. In the management of a palpable breast mass, a negative mammogram must not discourage biopsy of a clinically suspicious lesion. Electronically Signed By: Erik valdez/corinarad:05/09/2023 14:22:40 letter sent: Normal Exam ACR BI-RADS Category 2: Benign Finding(s) 3342F
== END ==
PROVIDERS: PCP Physician Assistant; Referring Provider Physician Assistant; Visit Provider Physician Assistant
DX: Z12.31 Encounter for screening mammogram for malignant neoplasm of breast (principal)
CPT/HCPCS: 77063; 77067

== ENCOUNTER 2023-08-02 15:05 | Emergency (ER) | payer MEDICARE, MEDICAID, SELFPAY ==
[2023-08-02 15:16] VITALS: BP 221/88; PULSE 91; RESP 16; TEMP 37.2; O2SAT 99; BMI 26.1
--- NOTE | 2023-08-02 15:20 | ED.DIZZY ---
HPI - Dizziness General Chief Complaint: Dizziness Stated Complaint: dizzy/fell Time Seen by Provider: 08/02/23 15:13 History of Present Illness HPI Narrative: Patient 78-year-old female history of hypertension presenting today with dizziness. She reports that for awhile now she has had nasal congestion and clogged ears. She pops her ears and gets dizzy sometimes however today she was walking into [facility] she had sudden onset of severe dizziness eating to grab onto both her walker and her friend it lasted less than a minute and she quickly came to the emergency department. She has no chest pain or palpitations. No nausea vomiting no numbness tingling or weakness. She is noted to have quite elevated blood pressure. She reports that she has white coat syndrome. She only takes blood pressure medication as needed. She would like this ear thing to go away. She has no fever or chills abdominal pain Related Data Previous Rx's Medication Instructions Recorded azithromycin 250 mg tablet 250 mg PO QDAY 5 days #0 tabs 06/27/17 (Zithromax) lisinopril 10 mg tablet 10 mg PO DAILY #30 tabs 11/13/19 azithromycin 250 mg tablet See Rx Instructions PO .COMPLEX #6 03/31/22 (Zithromax) tabs benzonatate 200 mg capsule 200 mg PO BID PRN cough #14 caps 03/31/22 guaifenesin 600 mg tablet, 600 mg PO Q12H PRN cough #20 tabs 03/31/22 extended release 12 hr Allergies Allergy/AdvReac Type Severity Reaction Status Date / Time cephalexin [CEPHALEXIN] Allergy Unknown Unverified 08/27/17 13:09 codeine [CODEINE] Allergy Unknown Unverified 08/27/17 13:09 latex [LATEX] Allergy Unknown Unverified 08/27/17 13:09 adhesive tape Allergy Hives Verified 12/24/18 20:31 Patient History Medical History (Updated 08/02/23 @ 16:29 by Linda Chandler DO) Diabetes Surgical History H/O carotid endarterectomy Social History Smoking Status: Former smoker Smoking Status: Former smoker alcohol intake frequency: other Substance Use Type: does not use Exam Initial Vital Signs Initial Vital Signs: Vital Signs Temperature 98.9 F 08/02/23 15:16 Pulse Rate 91 H 08/02/23 15:16 Respiratory Rate 16 08/02/23 15:16 Blood Pressure 221/88 H 08/02/23 15:16 Pulse Oximetry 99 08/02/23 15:16 Oxygen Delivery Method Room Air 08/02/23 15:16 GENERAL: Alert pleasant well-appearing 78-year-old female and in no acute distress. HEENT: Head atraumatic,EOMI, pupils reactive, face symmetric, moist mucous membranes CARDIOVASCULAR: Regular rate and rhythm without murmurs, rubs or gallops. RESPIRATORY: Breath sounds equal bilaterally, no wheezes rales or rhonchi. ABDOMEN: Soft, nontender. Normoactive bowel sounds all 4 quadrants. No guarding or rebound. EXTREMITIES: Normal range of motion, no clubbing or edema. Neurovascularly intact NEUROLOGICAL: Alert and oriented x4.Normal gait and speech. Cranial nerves II through XII grossly intact. [place] strength equal bilaterally lower extremity strength equal SKIN: Warm, dry, no laceration, no petechiae, no rashes or lesions. Course Orders Ordered: ED Orders 08/02/23 15:19 EKG-12 Lead Stat 08/02/23 15:39 Complete Blood Count AUTO DIFF Stat Comprehensive Metabolic Panel Stat Lipase Stat Troponin & CK Cardiac Panel Stat Vital Signs Vital signs: Vital Signs - 8 hr 08/02/23 15:16 08/02/23 16:21 08/02/23 16:30 Temperature 98.9 F Pulse Rate 91 H 68 61 Respiratory Rate 16 24 12 Blood Pressure 221/88 H 166/73 H Pulse Oximetry 99 96 96 Oxygen Delivery Method Room Air Room Air MDM - Dizziness Lab Data 08/02/23 15:39 08/02/23 15:39 Labs: Lab Results 08/02/23 Range/Units 15:39 WBC 4.3 L (4.5-11.0) X10^3/uL RBC 3.48 L (4.0-5.2) X10^6/uL Hgb 11.4 L (12.0-16.0) g/dL Hct 33.5 L (36-46) % MCV 96.2 (80-100) fL MCH 32.7 (26-34) PG MCHC 34.0 (30-36) % RDW 12.9 (11.6-14.8) % Plt Count 143 L (150-400) X10^3/uL Neut % (Auto) 56.5 (50-75) % Lymph % (Auto) 29.9 (25-40) % [place] % (Auto) 10.1 (3-14) % Eos % (Auto) 2.8 (2-4) % Baso % (Auto) 0.7 (0-2) % Neut # (Auto) 2500 (3110-6139) /uL Lymph # (Auto) 1300 (4898-7883) /uL [place] # (Auto) 400 (0-900) /uL Eos # (Auto) 100 (0-450) /uL Baso # (Auto) 0 (0-100) /uL Sodium 133 L (137-145) mmol/L Potassium 4.2 (3.4-5.1) mmol/L Chloride 99 (98-107) mmol/L Carbon Dioxide 29 (22-32) mmol/L BUN 14 (7-17) mg/dL Creatinine 0.64 (0.52-1.04) mg/dL Estimated GFR > 60 (>60) mL/min BUN/Creatinine Ratio 21.9 (6-22) Glucose 204 H (80-110) mg/dL Calcium 8.7 (8.4-10.2) mg/dL Total Bilirubin 1.4 H (0.2-1.3) mg/dL AST 25 (14-36) IU/L ALT 26 (<35) IU/L Alkaline Phosphatase 70 (38-126) U/L Total Creatine Kinase 27 L (30-135) U/L Troponin I < 0.012 (0.01-0.034) ng/mL Total Protein 6.8 (6.3-8.2) g/dL Albumin 3.8 (3.5-5.0) g/dL Globulin 3.0 (1.7-4.1) g/dL Albumin/Globulin Ratio 1.3 (1.0-2.8) Lipase 47 (23-300) U/L ECG Data Attestation: I personally reviewed and interpreted this ECG as follows: Prior ECG tracings: available for review Interpretation: Sinus rhythm rate 76 CT interval 176 QRS 194 QTC 432 T-wave inversion seen in V1 V2 no ST elevations previous EKGs in 2019 T-wave inversion present in V1 absent in V2. MDM Narrative Medical decision making narrative: Patient 78-year-old female history of hypertension presenting today with some dizziness. She has had some inner ear issues and nasal congestion ongoing for couple of weeks she has had some dizziness. Today she had a very brief episode of dizziness that she says it is very bad. She almost fell but she did not. She is noted to be quite hypertensive in the emergency department reports that she does have high blood pressure and it is worse around medical facilities. Blood work has been reviewed she has no oriented damage. EKG reviewed she does new T-wave in version in V2, however she has not experiencing any sort of chest pain or palpitations. Previous EKGs was a number of years ago. Patient is neurologically intact no evidence of posterior stroke. I suspect she is having she is relating to her going of respiratory like symptoms. She has brief episodes of dizziness not really consistent with vertigo. Question with her on when to return. At this time without any focal deficits I do not see any need for any further imaging or workup. Blood pressure improved during her ED stay last blood pressure 166/73 Discharge Plan Departure Patient Disposition: Home Clinical Impression: Dizziness Instructions: DI for Dizziness-Nonvertigo Activity Restrictions/Additional Instructions: *You have been diagnosed with dizziness nonverbal *What to do: At this time I do happened today is related to your ongoing nasal congestion and ear plugging. Unfortunately there is no pill to relieve any of this. It is okay to continue Claritin *Continue to take medications as directed *Follow up with your primary care provider in 2-3 days or call [phone] *Return to ER if you should have persistent dizziness weakness falling or any new, worsening or concerning symptoms Prescriptions: No Action azithromycin [Zithromax] 250 MG tablet 250 mg PO QDAY 5 Days Qty: 0 0RF azithromycin [Zithromax] 250 mg tablet See Rx Instructions .ROUTE .COMPLEX Qty: 6 0RF Rx Instructions: For 250 mg dose pack: take 500 mg today (day 1), then 250 mg for 4 days (days 2-5) benzonatate 200 mg capsule 200 mg PO BID PRN (Reason: cough) Qty: 14 0RF guaifenesin 600 mg tablet extended release 12hr 600 mg PO Q12H PRN (Reason: cough) Qty: 20 0RF lisinopril 10 mg tablet 10 mg PO DAILY Qty: 30 0RF Referrals: Rosa Roberts PA-C [Primary Care Provider] - Stand Alone Forms: Patient Portal/API
[2023-08-02 15:48] LABS: Add Manual Diff / Slide Review NO; Basophils Absolute Auto 0 /uL (0-100); Basophils Percent Auto 0.7 % (0-2); Eosinophils Absolute Auto 100 /uL (0-450); Eosinophils Percent Auto 2.8 % (2-4); Hematocrit 33.5 % (36-46); Hemoglobin 11.4 g/dL (12.0-16.0); Lymphocytes Absolute Auto 1300 /uL (1100-4500); Lymphocytes Percent Auto 29.9 % (25-40); Mean Corpuscular Hemoglobin 32.7 PG (26-34); Mean Corpuscular Volume 96.2 fL (80-100); Monocytes Absolute Auto 400 /uL (0-900); Monocytes Percent Auto 10.1 % (3-14); Neutrophils Absolute Auto 2500 /uL (1500-7000); Neutrophils Percent Auto 56.5 % (50-75); Platelet Count 143 X10^3/uL (150-400); Red Blood Cell Count 3.48 X10^6/uL (4.0-5.2); Red Cell Distribution Width 12.9 % (11.6-14.8); White Blood Cell Count 4.3 X10^3/uL (4.5-11.0)
[2023-08-02 16:01] LABS: Alanine Aminotransferase 26 IU/L (<35); Albumin 3.8 g/dL (3.5-5.0); Albumin Globulin Ratio 1.3 (1.0-2.8); Alkaline Phosphatase 70 U/L (38-126); Aspartate Aminotransferase 25 IU/L (14-36); BUN Creatinine Ratio 21.9 (6-22); Bilirubin Total 1.4 mg/dL (0.2-1.3); Blood Urea Nitrogen 14 mg/dL (7-17); Calcium 8.7 mg/dL (8.4-10.2); Carbon Dioxide 29 mmol/L (22-32); Chloride 99 mmol/L (98-107); Creatine Kinase 27 U/L (30-135); Estimated Glomerular Filt Rate > 60 mL/min (>60); Glucose 204 mg/dL (80-110); HEMOLYSIS < 15 (0-50); Lipase 47 U/L (23-300); Potassium 4.2 mmol/L (3.4-5.1); Sodium 133 mmol/L (137-145); Total Protein 6.8 g/dL (6.3-8.2)
[2023-08-02 16:13] LABS: Troponin I < 0.012 ng/mL (0.01-0.034)
[2023-08-02 16:21] VITALS: PULSE 68; RESP 24; O2SAT 96
[2023-08-02 16:30] VITALS: BP 166/73; PULSE 61; RESP 12; O2SAT 96
== END 2023-08-02 16:39 | disposition home or self-care (01) ==
PROVIDERS: Emergency Provider Emergency Medicine; PCP Physician Assistant
DX: R42 Dizziness and giddiness (principal); I10 Essential (primary) hypertension; Z87.891 Personal history of nicotine dependence
CPT/HCPCS: 36415; 80053; 82550; 83690; 84484; 85025; 93005; 93010; 99283

== ENCOUNTER → 2024-08-13 16:09 | Outpatient (CLI) | payer MEDICARE, MEDICAID, SELFPAY ==
[2024-08-13 16:52] LABS: Influenza A - CEPHEID Flu A NEGATIVE (NEGATIVE); Influenza B - CEPHEID Flu B NEGATIVE (NEGATIVE); Respiratory Syncytial Virus POSITIVE (Negative)
[2024-08-13 17:18] LABS: COVID-19 CEPHEID 4-PLEX PCR Negative (Negative)
== END ==
PROVIDERS: PCP Physician Assistant; Visit Provider Physician Assistant
DX: R06.02 Shortness of breath (principal)
CPT/HCPCS: 0241U

== ENCOUNTER → 2024-08-13 16:23 | Outpatient (CLI) | payer MEDICARE, MEDICAID, SELFPAY ==
--- NOTE | 2024-08-13 17:13 | DI.RAD.S_ITS ---
PROCEDURE: XR CHEST 2V INDICATIONS: Flu-like symptoms rule out pneumonia TECHNIQUE: 2 views of the chest were acquired. COMPARISON: [facility], JOMAR, XR CHEST 2V, 03/31/2022, 14:00. [facility], JOMAR, CHEST 2 VIEW, 06/27/2017, 14:36. FINDINGS: Surgical changes and devices: None. Lungs and pleura: Lungs are clear. No pleural effusions or pneumothorax. Mediastinum: Mediastinal contours are normal. Heart size is normal. Bones and chest wall: No suspicious bony abnormalities. Soft tissues appear unremarkable. IMPRESSION: No acute cardiopulmonary abnormality is seen. Dictated by: Eyal Resendez M.D. on 08/13/2024 at 17:25 Approved by: Eyal Resendez M.D. on 08/13/2024 at 17:26
== END ==
PROVIDERS: PCP Physician Assistant; Referring Provider Physician Assistant; Visit Provider Physician Assistant
DX: R05.9 Cough, unspecified (principal); R06.02 Shortness of breath
CPT/HCPCS: 0241U; 71046